=== PATIENT | male | born 2000 | race American Indian/Alaskan Native ===

== ENCOUNTER 2020-02-12 07:46 | Emergency (ER) | payer MEDICAID ==
[2020-02-12 08:55] VITALS: BP 121/72
[2020-02-12 08:56] LABS: Bilirubin,Urine NEG (Negative); Blood,Urine NEG (Negative); Color,Urine Yellow (Yellow); Mucus,Urine FEW /HPF; Protein,Urine <15 mg/dL mg/dL (Negative)
--- NOTE | 2020-02-12 09:06 | Emergency Department Report ---
Chief Complaint: Urogenital-Male Stated Complaint: STD CHECK Time Seen by Provider: 02/12/20 08:55 - HPI History of Present Illness: Patient is a 19-year-old male who presents emergency room with complaints of an episode of dysuria that occurred yesterday. He states that he only had one episode of dysuria but he has not had it since then. He states that he has urinated multiple times since then without dysuria. He states that he does have white penile discharge that has remained. He denies any abdominal pain, fever, nausea, vomiting, diarrhea, back pain, hematuria, urinary retention, pain or swelling in the testicles. No past medical history. No allergies medications. He states he is sexually active. He reports that he does use protection. He denies any STD history strain Vitals are normal On exam: Non toxic appearing, no acute distress atraumatic, normocephalic normal appearance of the eyes, EOMI, no periorbital edema or ecchymosis moist mucus membranes no respiratory distress, no accessory muscle use No abdominal tenderness on exam, no guarding, no rebound, no rigidity, abdomen is soft, no distention : Md Do Resident Urgent Care: [facility], no tenderness to palpation in the inguinal region, no tenderness to palpation to the bilateral testicles, no scrotal edema, no epididymal tenderness palpation or edema, normal testicular lie, normal cremasteric reflex, no lesions or blisters A&O x4 skin is warm, dry, intact Patient is presenting to the emergency room with STD-like symptoms He denies any abdominal pain, fever, nausea, vomiting, diarrhea, back pain, hematuria, urinary retention, pain or swelling in the testicles. No abnormality on physical exam as documented in chart UA was ordered prior to my examination, shows many white blood cells, likely secondary to STD Patient will be referred to the health department and clinics in order to rec eive a full STD panel advised pt Your urine has many bacteria present which is likely consistent with an STD. Please go to the clinic or the health department to have a full STD panel. Please have any partner tested and treated as well. Avoid sexual intercourse. Return to emergency room immediately for any new or worsening symptoms. Patient referred to the appropriate resources Discussed strict return precautions with patient Screening examination performed and there is no threat to life or limb at this time - Exam Vital Signs: Vital Signs 02/12/20 02/12/20 07:55 08:55 Temperature 98.3 F Pulse Rate 69 80 Respiratory 16 16 Rate Blood Pressure 123/73 Blood Pressure 121/72 [Left] O2 Sat by Pulse 100 99 Oximetry MSE screening note: Focused history and physical exam performed. Due to findings the following was ordered: ED Disposition for MSE Clinical Impression: Concern about STD in male without diagnosis, Bacteria in urine Disposition: MED SCREENING EXAM-LEFT Is pt being admited?: No Does the pt Need Aspirin: No Condition: Stable Instructions: Sexually Transmitted Diseases (ED), Safe Sex (ED) Additional Instructions: Your urine has many bacteria present which is likely consistent with an STD. Please go to the clinic or the health department to have a full STD panel. Please have any partner tested and treated as well. Avoid sexual intercourse. Return to emergency room immediately for any new or worsening symptoms. walk in clinic: [facility] Address: [address] [place] [id number] Referrals: [facility] [Outside] - 2-3 Days [facility] [Provider Group] - 2-3 Days Time of Disposition: 09:05 Print Language: CHINESE
== END 2020-02-12 09:30 | disposition left against medical advice (07) ==
LOC: ED 07:46
DX: R82.71 Bacteriuria (principal); Z53.21 Procedure and treatment not carried out due to patient leaving prior to being seen by health care provider
CPT/HCPCS: 81001

== ENCOUNTER 2020-03-11 08:38 | Emergency (ER) | payer MEDICAID ==
[2020-03-11 09:17] VITALS: BP 124/61
--- NOTE | 2020-03-11 09:57 | Emergency Department Report ---
ED ENT HPI - General Chief complaint: Sore Throat Stated complaint: PINK LT EYE/SORE THROAT Time Seen by Provider: 03/11/20 09:38 Source: patient Mode of arrival: Ambulatory Limitations: No Limitations - History of Present Illness Initial comments: This very pleasant 19-year-old male presents emerged department chief complaint of erythema and drainage from the right eye as well as sore throat. The right eye has been draining over the past 3 days and throat has been painful with swallowing over the past day. Patient reports sick contact with his son who has runny nose and congestion. Patient denies any associated fever, chills, night sweats, headache, dizziness, blurry vision, nausea,, diarrhea, chest pain, shortness of breath or any other associated symptoms. - Related Data Previous Rx's Medication Instructions Recorded Last Taken Type Sulfamethoxazole/Trimethoprim 1 each PO BID #14 tablet 09/14/19 Unknown Rx [Bactrim DS TAB] Erythromycin [Erythromycin Ophth 10 applic OP Q6HR #1 tube 03/11/20 Unknown Rx Oint] Naproxen 500 mg PO BID #20 tablet 03/11/20 Unknown Rx Allergies Allergy/AdvReac Type Severity Reaction Status Date / Time No Known Allergies Allergy Unverified 09/14/19 07:25 ED Dental HPI - General Chief complaint: Sore Throat Stated complaint: PINK LT EYE/SORE THROAT Time Seen by Provider: 03/11/20 09:38 Source: patient Mode of arrival: Ambulatory Limitations: No Limitations - Related Data Previous Rx's Medication Instructions Recorded Last Taken Type Sulfamethoxazole/Trimethoprim 1 each PO BID #14 tablet 09/14/19 Unknown Rx [Bactrim DS TAB] Erythromycin [Erythromycin Ophth 10 applic OP Q6HR #1 tube 03/11/20 Unknown Rx Oint] Naproxen 500 mg PO BID #20 tablet 03/11/20 Unknown Rx Allergies Allergy/AdvReac Type Severity Reaction Status Date / Time No Known Allergies Allergy Unverified 09/14/19 07:25 ED Review of Systems ROS: Stated complaint: PINK LT EYE/SORE THROAT Other details as noted in HPI Comment: All other systems reviewed and negative Constitutional: denies: chills, fever Eyes: eye discharge. denies: eye pain, vision change ENT: throat pain. denies: ear pain Respiratory: denies: cough, shortness of breath, wheezing Cardiovascular: denies: chest pain, palpitations Endocrine: no symptoms reported Gastrointestinal: denies: abdominal pain, nausea, diarrhea Genitourinary: denies: urgency, dysuria Musculoskeletal: denies: back pain, joint swelling, arthralgia Skin: denies: rash, lesions Neurological: denies: headache, weakness, paresthesias Psychiatric: denies: anxiety, depression Hematological/Lymphatic: denies: easy bleeding, easy bruising ED Past Medical Hx - Past Medical History Previous Medical History?: No - Surgical History Past Surgical History?: Yes Additional Surgical History: HERNIA - Social History Smoking Status: Never Smoker - Medications Home Medications: Home Medications Medication Instructions Recorded Confirmed Last Taken Type Sulfamethoxazole/Trimethoprim 1 each PO BID #14 tablet 09/14/19 Unknown Rx [Bactrim DS TAB] Erythromycin [Erythromycin Ophth 10 applic OP Q6HR #1 tube 03/11/20 Unknown Rx Oint] Naproxen 500 mg PO BID #20 tablet 03/11/20 Unknown Rx ED Physical Exam - General Limitations: No Limitations General appearance: alert, in no apparent distress - Head Head exam: Present: atraumatic, normocephalic - Eye Eye exam: Present: normal appearance, PERRL, EOMI, conjunctival injection (Mild erythema to the right eye with some purulent material in the corner of the eye. No periorbital edema, periorbital tenderness, or pain with extraocular movements). Absent: periorbital swelling, periorbital tenderness Pupils: Present: normal accommodation - ENT ENT exam: Present: normal exam, normal orophraynx, mucous membranes moist, other (Mild erythema to the posterior pharynx, no exudate, no peritonsillar bulging, retropharyngeal bulging or tongue elevation, no drooling or dysphonia) - Neck Neck exam: Present: normal inspection, full ROM. Absent: tenderness, meningismus - Respiratory Respiratory exam: Present: normal lung sounds bilaterally. Absent: respiratory distress, wheezes, rales, rhonchi, stridor - Cardiovascular Cardiovascular Exam: Present: regular rate, normal rhythm, normal heart sounds. Absent: systolic murmur, diastolic murmur, rubs, gallop - GI/Abdominal GI/Abdominal exam: Present: soft, normal bowel sounds. Absent: distended, tenderness, guarding, rigid - Rectal Rectal exam: Present: deferred - Extremities Exam Extremities exam: Present: normal inspection, full ROM, normal capillary refill. Absent: tenderness, calf tenderness (Negative Homans' sign bilaterally, no posterior calf tenderness) - Back Exam Back exam: Present: normal inspection - Neurological Exam Neurological exam: Present: alert, oriented X3 - Psychiatric Psychiatric exam: Present: normal affect, normal mood - Skin Skin exam: Present: warm, dry, intact, normal color. Absent: rash ED Course Vital Signs 03/11/20 09:17 Temperature 98.5 F Pulse Rate 67 Respiratory 16 Rate Blood Pressure 124/61 [Right] O2 Sat by Pulse 98 Oximetry ED Medical Decision Making - Medical Decision Making Patient's exam is considered a student with a viral pharyngitis of the throat recommended increase fluids, NSAIDs and follow-up with primary care doctor. The right eye is consistent with bacterial conjunctivitis which I will treat with erythromycin eye ointment. Recommended he stay out of work for the next 24 hours to avoid infection of others and do warm compresses. Patient was instructed to return the emerge department any change or worsening symptoms. He verbalized understanding the diagnosis, treatment plan and follow-up instructions all of his questions were answered. - Differential Diagnosis Bacterial conjunctivitis, viral conjunctivitis, strep throat, mononucleosi Critical care attestation.: If time is entered above; I have spent that time in minutes in the direct care of this critically ill patient, excluding procedure time. ED Disposition Clinical Impression: Viral pharyngitis, Bacterial conjunctivitis of right eye Disposition: - TO HOME OR SELFCARE Is pt being admited?: No Condition: Stable Instructions: Viral Respiratory Infection, [id number], Bacterial Conjunctivitis, Adult Prescriptions: Erythromycin [Erythromycin Ophth Oint] 10 applic OP Q6HR #1 tube Naproxen 500 mg PO BID #20 tablet Referrals: [facility] [Provider Group] - 3-5 Days Forms: Work/School Release Form(ED) Time of Disposition: 09:56
== END 2020-03-11 10:00 | disposition home or self-care (01) ==
LOC: ED 08:38
DX: J02.8 Acute pharyngitis due to other specified organisms (principal); H10.31 Unspecified acute conjunctivitis, right eye; Z79.899 Other long term (current) drug therapy
CPT/HCPCS: 99282

== ENCOUNTER 2021-03-12 10:43 | Emergency (ER) | payer MEDICAID ==
[2021-03-12 10:50] VITALS: BP 150/74
--- NOTE | 2021-03-12 11:01 | Emergency Department Report ---
ED Medical Clearance HPI - General Chief complaint: Extremity Injury, Lower Stated complaint: LEFT ANKLE Time Seen by Provider: 03/12/21 10:50 Source: patient Mode of arrival: Ambulatory - History of Present Illness Initial comments: The patient was evaluated in the emergency department for symptoms described in the history of present illness. He/she was evaluated in the context of the global COVID-19 pandemic, which necessitated consideration that the patient might be at risk for infection with the virus that causes COVID-19. Institutional protocols and algorithms that pertain to the evaluation of patients at risk for COVID-19 are in a state of rapid change based on information released by regulatory bodies including the CDC and federal and state organizations. These policies and algorithms were followed during the patient's care in the emergency department. Please note that these policies, procedures and recommendations changed on a rapid basis. 20-year-old -[place] male presents to the emergency room stating he needs a work clearance to return back to work after he injured his left ankle. Patient states that he rolled his ankle while playing basketball on Tuesday and has been off for a few days and desires to go back to work. Patient states his pain is very minimal and has not needed to take any oral pain medication. Patient states he did ice it elevated and put icy hot. Patient reports he has no new injury. MD Complaint: medical clearance request Onset/Timin -: days(s) Reason for Medical Clearance: other trauma Place: street Alledged Intoxication: No Compliant with Home Medications: No Treatments Prior to Arrival: none Home medications: Previous Rx's Medication Instructions Recorded Last Taken Type Sulfamethoxazole/Trimethoprim 1 each PO BID #14 tablet 09/14/19 Unknown Rx [Bactrim DS TAB] Erythromycin [Erythromycin Ophth 10 applic OP Q6HR #1 tube 03/11/20 Unknown Rx Oint] Naproxen 500 mg PO BID #20 tablet 03/11/20 Unknown Rx Allergies/Adverse reactions: Allergies Allergy/AdvReac Type Severity Reaction Status Date / Time No Known Allergies Allergy Verified 03/12/21 10:45 ED Review of Systems ROS: Stated complaint: LEFT ANKLE Other details as noted in HPI Comment: All other systems reviewed and negative ED Past Medical Hx - Past Medical History Previous Medical History?: No - Surgical History Additional Surgical History: HERNIA - Social History Smoking Status: Never Smoker - Medications Home Medications: Home Medications Medication Instructions Recorded Confirmed Last Taken Type Sulfamethoxazole/Trimethoprim 1 each PO BID #14 tablet 09/14/19 Unknown Rx [Bactrim DS TAB] Erythromycin [Erythromycin Ophth 10 applic OP Q6HR #1 tube 03/11/20 Unknown Rx Oint] Naproxen 500 mg PO BID #20 tablet 03/11/20 Unknown Rx ED Physical Exam - General Limitations: No Limitations General appearance: alert, in no apparent distress - Head Head exam: Present: atraumatic, normocephalic - Eye Eye exam: Present: normal appearance - ENT ENT exam: Present: mucous membranes moist - Neck Neck exam: Present: normal inspection - Respiratory Respiratory exam: Present: normal lung sounds bilaterally. Absent: respiratory distress - Cardiovascular Cardiovascular Exam: Present: regular rate, normal rhythm. Absent: systolic murmur, diastolic murmur, rubs, gallop - GI/Abdominal GI/Abdominal exam: Present: soft, normal bowel sounds - Rectal Rectal exam: Present: deferred - Extremities Exam Extremities exam: Present: normal inspection - Expanded Lower Extremity Exam Left Hip exam: Present: normal inspection Upper Leg exam: Present: normal inspection Knee exam: Present: normal inspection Lower Leg exam: Present: normal inspection Ankle exam: Present: full ROM, tenderness (mild), crepidus. Absent: swelling Foot/Toe exam: Present: full ROM. Absent: tenderness, swelling Neuro vascular tendon exam: Present: no vascular compromise Gait: Positive: observed and normal - Back Exam Back exam: Present: normal inspection - Neurological Exam Neurological exam: Present: alert, oriented X3, normal gait - Psychiatric Psychiatric exam: Present: normal affect, normal mood - Skin Skin exam: Present: warm, dry, intact, normal color. Absent: rash ED Course Vital Signs 03/12/21 03/12/21 03/12/21 10:48 10:49 10:50 Temperature 99.4 F Pulse Rate 80 Respiratory 20 20 Rate Blood Pressure 150/64 Blood Pressure 150/74 [Right] O2 Sat by Pulse 100 Oximetry ED Medical Decision Making - Medical Decision Making 20-year-old -[place] male presents to the emergency room stating he needs a work clearance to return back to work after he injured his left ankle. Patient states that he rolled his ankle while playing basketball on Tuesday and has been off for a few days and desires to go back to work. Patient states his pain is very minimal and has not needed to take any oral pain medication. Patient states he did ice it elevated and put icy hot. Patient reports he has no new injury. Patient is cleared to return back to work. I do recommend wearing the Georgi wraps to his left ankle or the ankle sleeve to give more support. Patient verbalized understanding. ED Disposition Clinical Impression: Left ankle injury Disposition: HOME / SELF CARE / HOMELESS Is pt being admited?: No Does the pt Need Aspirin: No Condition: Stable Instructions: Ankle Sprain, [id number] Additional Instructions: Patient is cleared to return back to work. I do recommend wearing the Georgi wraps to his left ankle or the ankle sleeve to give more support. Patient verbalized understanding. Forms: Work/School Release Form(ED) Time of Disposition: 11:00
== END 2021-03-12 11:26 | disposition home or self-care (01) ==
LOC: ED 10:43
DX: S99.912D Unspecified injury of left ankle, subsequent encounter (principal); X58.XXXD Exposure to other specified factors, subsequent encounter
CPT/HCPCS: 99282

== ENCOUNTER 2021-04-01 10:12 | Emergency (ER) | payer MEDICAID ==
[2021-04-01] MEDS ORDERED: amLODIPine 10 MG TAB ONE (10:22)
[2021-04-01] MEDS ORDERED: TETANUS,DIPH,PERTUSS(ACELL) VACCINE 0.5 ML SYRINGE IM ONE (11:33)
--- NOTE | 2021-04-01 12:06 | Emergency Department Report ---
- General Chief complaint: Skin/Abscess/Foreign Body Stated complaint: HAND Time Seen by Provider: 04/01/21 11:19 Source: patient Mode of arrival: Ambulatory Limitations: No Limitations - History of Present Illness Initial comments: This is a 20-year-old male nontoxic, well nourished in appearance, no acute signs of distress presents to the ED with c/o of redness and some pain to left hand x several weeks ago. Patient stated he cut his hand against a metal piece at work. Denies being up-to-date with tetanus. Denies any swelling. Patient denies any pus or drainage. Patient denies any fever, chills, nausea, vomiting, chest pain, shortness of breath, headache or stiff neck. Patient denies any allergies or significant past medical history. -: week(s) Tetanus Up to Date: no Location: LUE Severity: mild Severity scale (0 -10): 3 Quality: aching Consistency: constant Improves with: none Worsens with: none Context: none Associated symptoms: denies other symptoms Treatments Prior to Arrival: none - Related Data Previous Rx's Medication Instructions Recorded Last Taken Type Sulfamethoxazole/Trimethoprim 1 each PO BID #14 tablet 09/14/19 Unknown Rx [Bactrim DS TAB] Erythromycin [Erythromycin Ophth 10 applic OP Q6HR #1 tube 03/11/20 Unknown Rx Oint] Naproxen 500 mg PO BID #20 tablet 03/11/20 Unknown Rx Naproxen 500 mg PO Q12H PRN #12 tablet 04/01/21 Unknown Rx Sulfamethoxazole/Trimethoprim 1 each PO BID #14 tablet 04/01/21 Unknown Rx [Bactrim DS TAB] Allergies Allergy/AdvReac Type Severity Reaction Status Date / Time No Known Allergies Allergy Verified 04/01/21 10:16 Abscess Boil HPI - HPI Chief Complaint: Skin/Abscess/Foreign Body Stated Complaint: HAND Time Seen by Provider: 04/01/21 11:19 Home Medications: Previous Rx's Medication Instructions Recorded Last Taken Type Sulfamethoxazole/Trimethoprim 1 each PO BID #14 tablet 09/14/19 Unknown Rx [Bactrim DS TAB] Erythromycin [Erythromycin Ophth 10 applic OP Q6HR #1 tube 03/11/20 Unknown Rx Oint] Naproxen 500 mg PO BID #20 tablet 03/11/20 Unknown Rx Naproxen 500 mg PO Q12H PRN #12 tablet 04/01/21 Unknown Rx Sulfamethoxazole/Trimethoprim 1 each PO BID #14 tablet 04/01/21 Unknown Rx [Bactrim DS TAB] Allergies/Adverse Reactions: Allergies Allergy/AdvReac Type Severity Reaction Status Date / Time No Known Allergies Allergy Verified 04/01/21 10:16 ED Review of Systems ROS: Stated complaint: HAND Other details as noted in HPI Comment: All other systems reviewed and negative Constitutional: denies: chills, fever Eyes: denies: eye pain, eye discharge, vision change ENT: denies: ear pain, throat pain Respiratory: denies: cough, shortness of breath, wheezing Cardiovascular: denies: chest pain, palpitations Endocrine: no symptoms reported Gastrointestinal: denies: abdominal pain, nausea, diarrhea Genitourinary: denies: urgency, dysuria Musculoskeletal: denies: back pain, joint swelling, arthralgia Skin: denies: rash, lesions Neurological: denies: headache, weakness, paresthesias Psychiatric: denies: anxiety, depression Hematological/Lymphatic: denies: easy bleeding, easy bruising ED Past Medical Hx - Surgical History Additional Surgical History: HERNIA - Social History Smoking Status: Never Smoker - Medications Home Medications: Home Medications Medication Instructions Recorded Confirmed Last Taken Type Sulfamethoxazole/Trimethoprim 1 each PO BID #14 tablet 09/14/19 Unknown Rx [Bactrim DS TAB] Erythromycin [Erythromycin Ophth 10 applic OP Q6HR #1 tube 03/11/20 Unknown Rx Oint] Naproxen 500 mg PO BID #20 tablet 03/11/20 Unknown Rx Naproxen 500 mg PO Q12H PRN #12 tablet 04/01/21 Unknown Rx Sulfamethoxazole/Trimethoprim 1 each PO BID #14 tablet 04/01/21 Unknown Rx [Bactrim DS TAB] ED Physical Exam - General Limitations: No Limitations General appearance: alert, in no apparent distress - Head Head exam: Present: atraumatic, normocephalic - Eye Eye exam: Present: normal appearance - Neck Neck exam: Present: normal inspection, full ROM. Absent: lymphadenopathy - Respiratory Respiratory exam: Absent: respiratory distress - Cardiovascular Cardiovascular Exam: Present: regular rate - Extremities Exam Extremities exam: Present: normal inspection, full ROM, tenderness, normal capillary refill. Absent: joint swelling - Expanded Upper Extremity Exam Left General: Present: normal inspection Shoulder Exam: Present: normal inspection, full ROM. Absent: tenderness, swe lling Upper Arm exam: Present: normal inspection, full ROM. Absent: tenderness, swelling Elbow exam: Present: normal inspection, full ROM. Absent: tenderness, swelling Forearm Wrist exam: Present: normal inspection, full ROM. Absent: tenderness, swelling Hand Wrist exam: Present: full ROM, tenderness, erythema. Absent: swelling, abrasion, laceration, ecchymosis, deformity, crepidus, dislocation, amputation, nail avulsion, subungual hematoma Hand L/R Back: 1 - Small old 2 cm abrasion with some surrounding cellulitis noted. No induration or fluctuance. No swelling. Vascular: Present: normal capillary refill. Absent: vascular compromise (Neurovascular within normal limits) - Back Exam Back exam: Present: full ROM - Neurological Exam Neurological exam: Present: alert, oriented X3, normal gait - Psychiatric Psychiatric exam: Present: normal affect, normal mood - Skin Skin exam: Present: warm, dry, intact, normal color. Absent: rash ED Course Vital Signs 04/01/21 10:17 Temperature 98.2 F Pulse Rate 78 Respiratory 18 Rate Blood Pressure 117/69 O2 Sat by Pulse 100 Oximetry - Reevaluation(s) Reevaluation #1: 04/01/21 12:05 Patient is speaking in full sentences with no signs of distress noted. ED Medical Decision Making - Radiology Data [facility] [address] [place] [address] XRay Report Signed Patient: TOMMY BRYANT MR#: [id number] 615 : 2000 Acct:[id number] Age/Sex: 20 / M ADM Date: 04/01/21 Loc: ED Attending Dr: Ordering Physician: AFRICA TABARES NP Date of Service: 04/01/21 Procedure(s): XR hand 3+V LT Accession Number(s): [id number] cc: AFRICA TABARES NP Fluoro Time In Minutes: LEFT HAND 4 VIEWS INDICATION: left hand abrasion r/o foreign body. COM PARISON: None. IMPRESSION: No acute osseous abnormality or joint pathology. There is mild soft tissue swelling on the dorsum of the hand. No soft tissue gas or radiopaque foreign body. Signer Name: Pratik Meek Jr, MD Signed: 04/01/2021 12:03 PM Workstation Name: [id number] Transcribed By: TTR Dictated By: PRATIK MEEK JR, MD Electronically Authenticated By: PRATIK MEEK JR, MD Signed Date/Time: 04/01/211202 DD/ 02 TD/TT: - Medical Decision Making This is a 20-year-old male that presents with cellulitis. Patient is stable and was examined by me. There is no induration, fluctuance. No signs of abscess formation. The area has been outlined with a permanent marker and patient was instructed to observe symptoms of increased redness or swelling and to return to the ER if this does occur. I will discharge patient with Bactrim. Patient did receive a tetanus booster in the ER. X-ray does not show any foreign body. Mino gustafson is notified of the x-ray results with no questions noted by the patient. Patient was referred to Follow-up with a primary care doctor in 3-5 days or if symptoms worsen and continue return to emergency room as soon as possible. At time of discharge, the patient does not seem toxic or ill in appearance. No acute signs of distress noted. Patient agrees to discharge treatment plan of care. No further questions noted by the patient. Critical care attestation.: If time is entered above; I have spent that time in minutes in the direct care of this critically ill patient, excluding procedure time. ED Disposition Clinical Impression: Cellulitis of left hand Disposition: 01 HOME / SELF CARE / HOMELESS Is pt being admited?: No Does the pt Need Aspirin: No Condition: Stable Instructions: Cellulitis, Adult, [id number] Additional Instructions: Follow-up with a primary care doctor in 3-5 days or if symptoms worsen and continue return to emergency room as soon as possible. Prescriptions: Sulfamethoxazole/Trimethoprim [Bactrim DS TAB] 1 each PO BID #14 tablet Naproxen 500 mg PO Q12H PRN #12 tablet PRN Reason: Pain , Severe (7-10) Referrals: PRIMARY CAREMD [Primary Care Provider] - 3-5 Days SRUTHI DAVID MD [Staff Physician] - 3-5 Days Forms: Work/School Release Form(ED) Time of Disposition: 12:34
[2021-04-01 13:09] VITALS: BP 118/79
== END 2021-04-01 13:08 | disposition home or self-care (01) ==
LOC: ED 10:12
DX: L03.114 Cellulitis of left upper limb (principal)
CPT/HCPCS: 90471; 90715; 99283

== ENCOUNTER 2021-04-13 12:13 | Emergency (ER) | payer MEDICAID ==
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
[2021-04-13 13:14] VITALS: BP 138/76
== END 2021-04-13 13:35 | disposition home or self-care (01) ==
LOC: ED 13:10
DX: S39.012A Strain of muscle, fascia and tendon of lower back, initial encounter (principal); V89.2XXA Person injured in unspecified motor-vehicle accident, traffic, initial encounter; Y93.89 Activity, other specified; Y92.89 Other specified places as the place of occurrence of the external cause; Y99.8 Other external cause status
CPT/HCPCS: 99282

== ENCOUNTER 2021-05-20 19:40 | Emergency (ER) | payer MEDICAID ==
[2021-05-20] MEDS ORDERED: ONDANSETRON 4 MG ODT TAB PO ONE ×2 (20:14→21:22)
--- NOTE | 2021-05-20 20:14 | Emergency Department Report ---
Blank Doc - Documentation Documentation: MSE complete. Pt c/o n/v today w/o diarrhea. No known sick contacts. No f/c. Abd soft on exam. No rebound or guarding. Labs and zofran ordered.
[2021-05-20 20:37] LABS: Hematocrit 48.1 % (35.5-45.6); Hemoglobin 15.3 gm/dl (11.8-15.2); Mean Corpuscular HGB Conc 32 % (32-34); Mean Corpuscular Volume 86 fl (84-94); Platelet Count 239 K/mm3 (140-440); Red Blood Count 5.62 M/mm3 (3.65-5.03); Red Cell Distribution Width 14.3 % (13.2-15.2)
[2021-05-20 20:55] LABS: BUN/Creatinine Ratio 11; Blood Urea Nitrogen 9 mg/dL (9-20); Calcium 9.3 mg/dL (8.4-10.2); Hemolysis Index 8
--- NOTE | 2021-05-20 21:20 | Emergency Department Report ---
ED N/V/D HPI - General Chief complaint: Abdominal Pain Stated complaint: VOMITING Time Seen by Provider: 05/20/21 20:11 Source: patient Mode of arrival: Ambulatory Limitations: No Limitations - History of Present Illness Initial comments: Chief complaint: Vomiting HPI: This is a 20-year-old male with history of marijuana use who presents with vomiting since this morning. He denies fever, sick contacts, diarrhea, abdominal pain. He states that he likely ate junk last night". He smokes marijuana daily. Last use of marijuana on yesterday. Past surgical history: Hernia surgery MD complaint: nausea, vomiting -: This morning (This morning) Description of Vomiting: food contents Associated Abdominal Pain: No Severity: severe Pain Scale: 0 Consistency: constant, other (Patient was able to tolerate ice) Improves with: none Worsens with: none Context: other (Daily marijuana use) Associated Symptoms: denies other symptoms - Related Data Previous Rx's Medication Instructions Recorded Last Taken Type Sulfamethoxazole/Trimethoprim 1 each PO BID #14 tablet 09/14/19 Unknown Rx [Bactrim DS TAB] Erythromycin [Erythromycin Ophth 10 applic OP Q6HR #1 tube 03/11/20 Unknown Rx Oint] Naproxen 500 mg PO BID #20 tablet 03/11/20 Unknown Rx Naproxen 500 mg PO Q12H PRN #12 tablet 04/01/21 Unknown Rx Sulfamethoxazole/Trimethoprim 1 each PO BID #14 tablet 04/01/21 Unknown Rx [Bactrim DS TAB] Ketorolac [Toradol] 10 mg PO Q6H PRN #20 tablet 04/13/21 Unknown Rx methOCARBAMOL [Robaxin TAB] 500 mg PO Q6H PRN #30 tablet 04/13/21 Unknown Rx Ondansetron [Zofran Odt] 4 mg PO Q8HR PRN #12 tab.rapdis 05/20/21 Unknown Rx Allergies Allergy/AdvReac Type Severity Reaction Status Date / Time No Known Allergies Allergy Verified 05/20/21 19:53 ED Review of Systems ROS: Stated complaint: VOMITING Other details as noted in HPI Comment: All other systems reviewed and negative Constitutional: denies: chills, fever, malaise Cardiovascular: denies: chest pain Gastrointestinal: nausea, vomiting. denies: abdominal pain, diarrhea, const ipation, hematemesis Neurological: denies: headache ED Past Medical Hx - Past Medical History Previous Medical History?: No - Surgical History Past Surgical History?: Yes Additional Surgical History: HERNIA - Social History Smoking Status: Never Smoker Substance Use Type: Marijuana - Medications Home Medications: Home Medications Medication Instructions Recorded Confirmed Last Taken Type Sulfamethoxazole/Trimethoprim 1 each PO BID #14 tablet 09/14/19 Unknown Rx [Bactrim DS TAB] Erythromycin [Erythromycin Ophth 10 applic OP Q6HR #1 tube 03/11/20 Unknown Rx Oint] Naproxen 500 mg PO BID #20 tablet 03/11/20 Unknown Rx Naproxen 500 mg PO Q12H PRN #12 tablet 04/01/21 Unknown Rx Sulfamethoxazole/Trimethoprim 1 each PO BID #14 tablet 04/01/21 Unknown Rx [Bactrim DS TAB] Ketorolac [Toradol] 10 mg PO Q6H PRN #20 tablet 04/13/21 Unknown Rx methOCARBAMOL [Robaxin TAB] 500 mg PO Q6H PRN #30 tablet 04/13/21 Unknown Rx Ondansetron [Zofran Odt] 4 mg PO Q8HR PRN #12 tab.rapdis 05/20/21 Unknown Rx ED Physical Exam - General Limitations: No Limitations General appearance: alert, in no apparent distress - Head Head exam: Present: atraumatic, normocephalic - Eye Eye exam: Present: normal appearance - ENT ENT exam: Present: mucous membranes moist - Neck Neck exam: Present: normal inspection, full ROM - Respiratory Respiratory exam: Present: normal lung sounds bilaterally. Absent: respiratory distress, wheezes, rales, rhonchi, stridor - Cardiovascular Cardiovascular Exam: Present: regular rate, normal rhythm, normal heart sounds. Absent: systolic murmur, diastolic murmur, rubs, gallop - GI/Abdominal GI/Abdominal exam: Present: soft, normal bowel sounds. Absent: distended, tenderness, guarding, rebound - Rectal Rectal exam: Present: deferred - Extremities Exam Extremities exam: Present: normal inspection - Neurological Exam Neurological exam: Present: alert, oriented X3 - Psychiatric Psychiatric exam: Present: normal affect, normal mood - Skin Skin exam: Present: warm, dry, intact, normal color. Absent: rash ED Course Vital Signs 05/20/21 19:50 Temperature 98.3 F Pulse Rate 84 Respiratory 18 Rate Blood Pressure 131/77 O2 Sat by Pulse 99 Oximetry ED Medical Decision Making - Lab Data Result diagrams: 05/20/21 20:20 05/20/21 20:20 Laboratory Results - last 24 hr 05/20/21 05/20/21 20:20 20:20 WBC 15.0 H RBC 5.62 H Hgb 15.3 H Hct 48.1 H MCV 86 MCH 27 L MCHC 32 RDW 14.3 Plt Count 239 Sodium 145 Potassium 4.2 Chloride 106.0 Carbon Dioxide 23 Anion Gap 20 BUN 9 Creatinine 0.8 Estimated GFR > 60 BUN/Creatinine Ratio 11 Glucose 121 H Calcium 9.3 - Medical Decision Making This is a 20-year-old male with history of daily marijuana use who presents with vomiting. He denies fever abdominal pain or diarrhea. Patient has leukocytosis without abdominal tenderness or fever. I gave patient appendicitis education. He understands return for pain or fever. I suspect cannabinoid hyperemesis syndrome. I prescribed Zofran. I recommended abstaining from marijuana use. Discharged home. Stable vital signs. Critical care attestation.: If time is entered above; I have spent that time in minutes in the direct care of this critically ill patient, excluding procedure time. ED Disposition Clinical Impression: Cannabinoid hyperemesis syndrome Disposition: HOME / SELF CARE / HOMELESS Is pt being admited?: No Does the pt Need Aspirin: No Condition: Stable Instructions: Nausea and Vomiting, Adult, [id number], Cannabis Use Disorder Additional Instructions: Please return if you develop pain or fever. Please return to the emergency department if your symptoms worsen or do not improve. Prescriptions: Ondansetron [Zofran Odt] 4 mg PO Q8HR PRN #12 tab.rapdis PRN Reason: Nausea And Vomiting Referrals: SRUTHI DAVID MD [Staff Physician] - 3-5 Days Forms: Work/School Release Form(ED)
[2021-05-20 21:45] VITALS: BP 137/83
== END 2021-05-20 21:40 | disposition home or self-care (01) ==
LOC: ED 19:40
DX: R11.2 Nausea with vomiting, unspecified (principal); Z79.899 Other long term (current) drug therapy; F17.200 Nicotine dependence, unspecified, uncomplicated
CPT/HCPCS: 36415; 80048; 85027; 99283; J3490; Q0162